=== PATIENT | male | born 1965 | race Caucasian/White ===

== ENCOUNTER 2019-01-15 20:56 | Emergency (ER) | payer BC ==
[~2019-01-15] VITALS: Ht 182.9 cm; Wt 90.8 kg
[~2019-01-15 20:56] MED LIST: MECL-111 PO
--- NOTE | 2019-01-15 21:06 | NUR ---
after triage completed, pt mentioned that he has taken a full course of bactrim without relief, when asked where he got the medications he declined to say, stating that he had his sources
[2019-01-15] MEDS ORDERED: normal saline 1000ML IV soln IV ONE (22:10)
[2019-01-15] MEDS ORDERED: methylPREDNISolone sod succ 125mg/2ml vial IV ONE (22:15)
[2019-01-15] MEDS ORDERED: ipratropium/albuterol 3ml nebule NEB ONE (22:15)
[2019-01-15 22:24] LABS: BASOPHILS % (AUTO) 0.6 % (0-1); EOSINOPHILS # (AUTO) 0.1 X10'3 (0-0.9); EOSINOPHILS % (AUTO) 1.8 % (0-6); HEMATOCRIT 42.1 % (42.0-52.0); HEMOGLOBIN 14.4 g/dl (14.0-17.9); LYMPHOCYTES # (AUTO) 0.7 X10'3 (1.1-4.8); LYMPHOCYTES % (AUTO) 12.6 % (21-51); MEAN CORPUSCULAR HEMOGLOBIN 30.2 PG (27.0-31.0); MEAN CORPUSCULAR HGB CONC 34.3 g/dL (33.0-36.5); MEAN CORPUSCULAR VOLUME 88.1 FL (78-98); MEAN PLATELET VOLUME 7.9 FL (7.4-10.4); MONOCYTES # (AUTO) 0.5 X10'3 (0-0.9); MONOCYTES % (AUTO) 8.6 % (2-12); NEUTROPHILS # (AUTO) 4.2 X10'3 (1.8-7.7); NEUTROPHILS % (AUTO) 76.4 % (42-75); PLATELET COUNT 211 X10'3 (140-440); RED BLOOD COUNT 4.77 X10'6 (4.70-6.10); RED CELL DISTRIBUTION WIDTH 12.6 % (11.5-14.5); WHITE BLOOD COUNT 5.5 X10'3 (4.5-11.0)
[2019-01-15 22:24] LABS: CLARITY,URINE CLEAR (Clear); COLOR,URINE YELLOW (Yellow); GLUCOSE, URINE NEGATIVE (Neg); KETONES,URINE NEGATIVE (Neg); LEUKOCYTE ESTERASE ,URINE NEGATIVE (Neg); NITRITES, URINE NEGATIVE (Neg); OCCULT BLOOD,URINE NEGATIVE (Neg); PROTEIN,URINE NEGATIVE (Neg); UROBILINOGEN,URINE 0.2 E.U/dL (0.2-1.0)
[2019-01-15 22:29] LABS: UA COLLECTION TYPE CLN CATCH MIDSTREAM
[2019-01-15 22:35] LABS: URINE AMPHETAMINE SCREEN NEGATIVE (Neg); URINE BARBITUATE SCREEN NEGATIVE (Neg); URINE BENZODIAZEPINES SCREEN NEGATIVE (Neg); URINE CANNABINOID SCREEN NEGATIVE (Neg); URINE COCAINE SCREEN NEGATIVE (Neg); URINE METHADONE SCREEN NEGATIVE (Neg); URINE OPIATE SCREEN NEGATIVE (Neg); URINE PHENCYCLIDINE SCREEN NEGATIVE (Neg)
[2019-01-15 22:39] LABS: ALANINE AMINOTRANSFERASE 69 U/L (12-78); ALBUMIN 3.3 G/DL (3.4-5.0); ALBUMIN/GLOBULIN RATIO 0.8 (1.1-1.5); ALKALINE PHOSPHATASE 119 IU/L (46-116); ANION GAP 7 (8-16); ASPARTATE AMINO TRANSFERASE 39 U/L (10-37); BILIRUBIN,TOTAL 0.4 MG/DL (0.1-1.0); CALCIUM 9.1 MG/DL (8.5-10.1); CHLORIDE 104 MMOL/L (99-107); CREATININE 1.05 MG/DL (0.60-1.10); ETHANOL < 0.010 GM/DL (0.0-0.010); GLUCOSE 113 MG/DL (70-104); POTASSIUM 3.7 MMOL/L (3.5-5.1); SODIUM 139 MMOL/L (135-145); TOTAL CARBON DIOXIDE 27.6 MMOL/L (24-32); TOTAL PROTEIN 7.2 G/DL (6.4-8.2); eGFR 73 ML/MIN
[2019-01-15 22:42] LABS: INR 1.1 INR; PARTIAL THROMBOPLASTIN TIME 32 SECONDS (22-32); PROTHROMBIN TIME 10.8 SECONDS (9.0-12.0)
[2019-01-15 22:48] LABS: BLOOD UREA NITROGEN 16 MG/DL (7-18); BUN/CREATININE RATIO 15.2 (5.4-32.0)
[2019-01-15] MEDS ORDERED: GUAI473S11 PO (23:14)
[2019-01-15] MEDS ORDERED: AMOX-422 PO (23:14)
[2019-01-15] MEDS ORDERED: PRED20TA PO (23:14)
[2019-01-15] MEDS ORDERED: ALBU6.7H INH (23:14)
[2019-01-15 23:45] VITALS: BP 134/73
== END 2019-01-16 00:11 | disposition home or self-care (01) ==
LOC: ER 20:57
DX: J18.9 Pneumonia, unspecified organism (principal); R06.02 Shortness of breath; I10 Essential (primary) hypertension; Z88.5 Allergy status to narcotic agent; Z79.899 Other long term (current) drug therapy
CPT/HCPCS: 36415; 71045; 80053; 80305; 80320; 81003; 83605; 84145; 85025; 85610; 85730; 87040; 94640; 94760; 96374; 99284; J2930; J7030

== ENCOUNTER 2023-03-04 05:55 | Emergency (ER) | payer BC ==
[~2023-03-04] VITALS: Ht 182.9 cm; Wt 79.5 kg
[~2023-03-04 05:55] MED LIST changes: +ALBU6.7H14 INH; -MECL-111 PO; +MECL-159 PO
[2023-03-04 06:25] LABS: BASOPHILS % (AUTO) 0.4 % (0-1); EOSINOPHILS # (AUTO) 0.2 X10'3 (0-0.9); EOSINOPHILS % (AUTO) 2.2 % (0-6); HEMATOCRIT 51.6 % (42.0-52.0); HEMOGLOBIN 17.6 g/dl (14.0-17.9); LYMPHOCYTES # (AUTO) 1.7 X10'3 (1.1-4.8); LYMPHOCYTES % (AUTO) 23.7 % (21-51); MEAN CORPUSCULAR HEMOGLOBIN 30.8 PG (27.0-31.0); MEAN CORPUSCULAR HGB CONC 34.1 g/dL (33.0-36.5); MEAN CORPUSCULAR VOLUME 90.3 FL (78-98); MEAN PLATELET VOLUME 8.8 FL (7.4-10.4); MONOCYTES # (AUTO) 0.6 X10'3 (0-0.9); MONOCYTES % (AUTO) 8.2 % (2-12); NEUTROPHILS # (AUTO) 4.6 X10'3 (1.8-7.7); NEUTROPHILS % (AUTO) 65.5 % (42-75); PLATELET COUNT 174 X10'3 (140-440); RED BLOOD COUNT 5.71 X10'6 (4.70-6.10); RED CELL DISTRIBUTION WIDTH 13.1 % (11.5-14.5)
[2023-03-04] MEDS ORDERED: diltiazem 5mg/ml 5ml inj. IV ONE (06:30)
[2023-03-04] MEDS ORDERED: normal saline 1000ml 1,000 ML IV ONE (06:30)
[2023-03-04 06:37] LABS: ALANINE AMINOTRANSFERASE 58 U/L (12-78); ALBUMIN 4.3 G/DL (3.4-5.0); ALBUMIN/GLOBULIN RATIO 1.3 (1.1-1.5); ALKALINE PHOSPHATASE 91 IU/L (46-116); ANION GAP 11 (8-16); ASPARTATE AMINO TRANSFERASE 32 U/L (10-37); BILIRUBIN,TOTAL 0.6 MG/DL (0.1-1.0); BLOOD UREA NITROGEN 17 MG/DL (7-18); BUN/CREATININE RATIO 16.8 (10.0-20.0); CALCIUM 9.1 MG/DL (8.5-10.1); CHLORIDE 104 MMOL/L (99-107); CREATININE 1.01 MG/DL (0.60-1.10); GLUCOSE 105 MG/DL (70-104); POTASSIUM 3.5 MMOL/L (3.5-5.1); SODIUM 141 MMOL/L (135-145); TOTAL CARBON DIOXIDE 26.4 MMOL/L (24-32); TOTAL PROTEIN 7.6 G/DL (6.4-8.2); eGFR 76 ML/MIN
[2023-03-04 06:43] LABS: MAGNESIUM 2.4 MG/DL (1.5-2.4)
[2023-03-04] MEDS ORDERED: metoprolol tartrate 1mg/ml inj IV ONE (07:10)
--- NOTE | 2023-03-04 07:11 | NUR ---
Pt's HR at 148 bpm (afib). BP 129/71. Dr. Toro at bedside. Per MD RN to order and administer 5 mg IV lopressor. RN ordered via [facility]OR[facility]. RN to administer. Addendum: 03/04/23 at 0820 by KRISTI Upon reassessment, HR decreased to 80 bpm, BP 116/67. Pt reports that he "feels better." Dizziness has improved.
[2023-03-04] MEDS ORDERED: magnesium 2GM in 50ml NS 50 ML IV ONE ×2 (08:30→09:30)
[2023-03-04] MEDS ORDERED: POTASSIUM BICARB 20meq eff tab 20 MEQ TABLET.EFF PO ONE (08:30)
[2023-03-04] MEDS ORDERED: METO50TA7 PO ×2 (10:51)
[2023-03-04 11:24] VITALS: BP 108/83
== END 2023-03-04 11:28 | disposition home or self-care (01) ==
LOC: ER 05:55
DX: I48.20 Chronic atrial fibrillation, unspecified (principal); I10 Essential (primary) hypertension; Z88.8 Allergy status to other drugs, medicaments and biological substances; Z79.899 Other long term (current) drug therapy
CPT/HCPCS: 36415; 71045; 80053; 83605; 83735; 83880; 84439; 84443; 84484; 85025; 87040; 93005; 96361; 96365; 96375; 99285; J3475; J3490; J7030

== ENCOUNTER 2023-03-07 22:20 | Inpatient (IN) | payer BC ==
[~2023-03-07] VITALS: Ht 182.9 cm; Wt 79.5 kg
[~2023-03-07 22:20] MED LIST changes: +METO50TA7 PO
[2023-03-07 22:51] LABS: BASOPHILS # (AUTO) 0.1 X10'3 (0-0.2); BASOPHILS % (AUTO) 0.7 % (0-1); EOSINOPHILS # (AUTO) 0.2 X10'3 (0-0.9); EOSINOPHILS % (AUTO) 2.7 % (0-6); HEMATOCRIT 48.8 % (42.0-52.0); HEMOGLOBIN 16.9 g/dl (14.0-17.9); LYMPHOCYTES # (AUTO) 2.7 X10'3 (1.1-4.8); LYMPHOCYTES % (AUTO) 34.7 % (21-51); MEAN CORPUSCULAR HEMOGLOBIN 30.9 PG (27.0-31.0); MEAN CORPUSCULAR HGB CONC 34.6 g/dL (33.0-36.5); MEAN CORPUSCULAR VOLUME 89.5 FL (78-98); MEAN PLATELET VOLUME 8.9 FL (7.4-10.4); MONOCYTES # (AUTO) 0.6 X10'3 (0-0.9); MONOCYTES % (AUTO) 7.6 % (2-12); NEUTROPHILS # (AUTO) 4.2 X10'3 (1.8-7.7); NEUTROPHILS % (AUTO) 54.3 % (42-75); PLATELET COUNT 176 X10'3 (140-440); RED BLOOD COUNT 5.45 X10'6 (4.70-6.10); WHITE BLOOD COUNT 7.8 X10'3 (4.5-11.0)
[2023-03-07] MEDS ORDERED: magnesium 2GM in 50ml NS 50 ML IV ONE (22:55)
[2023-03-07] MEDS ORDERED: normal saline 1000ml 1,000 ML IV ONE (22:55)
[2023-03-07] MEDS ORDERED: metoprolol tartrate 1mg/ml inj IV ONE (22:55)
[2023-03-07 22:57] LABS: ALANINE AMINOTRANSFERASE 74 U/L (12-78); ALBUMIN 4.2 G/DL (3.4-5.0); ALBUMIN/GLOBULIN RATIO 1.2 (1.1-1.5); ALKALINE PHOSPHATASE 84 IU/L (46-116); ANION GAP 12 (8-16); ASPARTATE AMINO TRANSFERASE 31 U/L (10-37); BILIRUBIN,TOTAL 0.4 MG/DL (0.1-1.0); BLOOD UREA NITROGEN 24 MG/DL (7-18); BUN/CREATININE RATIO 21.8 (10.0-20.0); CALCIUM 8.8 MG/DL (8.5-10.1); CHLORIDE 104 MMOL/L (99-107); POTASSIUM 3.7 MMOL/L (3.5-5.1); SODIUM 141 MMOL/L (135-145); TOTAL CARBON DIOXIDE 25.4 MMOL/L (24-32); TOTAL PROTEIN 7.7 G/DL (6.4-8.2); eGFR 69 ML/MIN
[2023-03-07 23:05] LABS: MAGNESIUM 2.2 MG/DL (1.5-2.4)
[2023-03-07 23:11] LABS: GLUCOSE 126 MG/DL (70-104)
[2023-03-08] VITALS (16 sets, daily range): BP systolic 108–167; BP diastolic 49–93
[2023-03-08] MEDS ORDERED: metoprolol tartrate 1mg/ml inj IV ONE ×2 (00:05→00:10)
[2023-03-08] MEDS ORDERED: diltiazem-D5W 125mg/125ml 125 ML IV SCH (00:10)
[2023-03-08] MEDS: diltiazem-NS 100mg/100ml 100 ML IV SCH ×2 (00:23→07:18)
[2023-03-08] MEDS ORDERED: normal saline 1000ml 1,000 ML IV SCH (01:50)
[2023-03-08] MEDS ORDERED: ondansetron/PF 4mg/2ml inj IV PRN (01:50)
[2023-03-08] MEDS ORDERED: magnesium hydroxide 30ml (MOM) UD suspension PO PRN (01:50)
[2023-03-08] MEDS ORDERED: diphenhydrAMINE 25mg capsule PO PRN (01:50)
[2023-03-08] MEDS ORDERED: ondansetron 4mg rapidly disintigrating tab PO PRN (01:50)
[2023-03-08] MEDS ORDERED: bisacodyl 10mg suppository rectal RC PRN (01:50)
[2023-03-08] MEDS ORDERED: acetaminophen 650mg rectal suppository RC PRN (01:50)
[2023-03-08] MEDS ORDERED: diphenhydrAMINE 50 mg/ml inj IV PRN (01:50)
[2023-03-08] MEDS ORDERED: mag hydrox/Alum hydrox/simeth 30ml oral suspension PO PRN (01:50)
[2023-03-08] MEDS ORDERED: acetaminophen 325mg tablet PO PRN ×2 (01:50)
[2023-03-08] MEDS ORDERED: heparin 10,000 units/1 ML INJ IV PRN (01:55)
[2023-03-08] MEDS ORDERED: heparin 25,000 UNIT/250ml bag 250 ML IV PRN (01:55)
[2023-03-08] MEDS ORDERED: heparin 10,000 units/1 ML INJ IV ONE (01:55)
[2023-03-08 02:05] LABS: APTT 29 SECONDS (22-32)
[2023-03-08 02:16] LABS: CREATINE KINASE 153 U/L (39-308); LIPASE 125 U/L (73-393)
[2023-03-08 02:17] LABS: HEMOGLOBIN A1C 5.3 % (4.5-6.2)
[2023-03-08 02:34] LABS: BASOPHILS # (AUTO) 0.1 X10'3 (0-0.2); BASOPHILS % (AUTO) 0.7 % (0-1); EOSINOPHILS # (AUTO) 0.1 X10'3 (0-0.9); EOSINOPHILS % (AUTO) 1.5 % (0-6); HEMATOCRIT 45.6 % (42.0-52.0); HEMOGLOBIN 15.9 g/dl (14.0-17.9); LYMPHOCYTES # (AUTO) 1.4 X10'3 (1.1-4.8); LYMPHOCYTES % (AUTO) 17.3 % (21-51); MEAN CORPUSCULAR HEMOGLOBIN 31.1 PG (27.0-31.0); MEAN CORPUSCULAR HGB CONC 34.8 g/dL (33.0-36.5); MEAN CORPUSCULAR VOLUME 89.3 FL (78-98); MONOCYTES # (AUTO) 0.4 X10'3 (0-0.9); MONOCYTES % (AUTO) 5.2 % (2-12); NEUTROPHILS % (AUTO) 75.3 % (42-75); PLATELET COUNT 164 X10'3 (140-440); RED BLOOD COUNT 5.11 X10'6 (4.70-6.10); RED CELL DISTRIBUTION WIDTH 12.9 % (11.5-14.5)
[2023-03-08 02:43] LABS: URINE AMPHETAMINE SCREEN NEGATIVE (Neg); URINE BARBITUATE SCREEN NEGATIVE (Neg); URINE BENZODIAZEPINES SCREEN NEGATIVE (Neg); URINE CANNABINOID SCREEN NEGATIVE (Neg); URINE COCAINE SCREEN NEGATIVE (Neg); URINE METHADONE SCREEN NEGATIVE (Neg); URINE OPIATE SCREEN NEGATIVE (Neg); URINE PHENCYCLIDINE SCREEN NEGATIVE (Neg)
[2023-03-08] MEDS ORDERED: LISI5TAB22 PO (04:24)
[2023-03-08] MEDS ORDERED: METO-384 PO (04:25)
--- NOTE | 2023-03-08 06:48 | NUR ---
Problems reprioritized. Patient report given, questions answered & plan of care reviewed with Joss LAWS.
[2023-03-08] MEDS: pantoprazole 40mg Tablet.DR PO SCH (07:27)
[2023-03-08] MEDS: docusate sod 100mg capsule PO SCH ×2 (07:28→20:12)
--- NOTE | 2023-03-08 07:30 | NUR ---
Message: Nirali [id number], Pt is in normal sinus rhythm and on Cardizem drip at 5. Did you want them swapped to PO Cardizem or remain on drip? Also did you want to advance pt's diet to HH from clear liquid? Joss [id number]
[2023-03-08] MEDS ORDERED: diltiazem 30mg tablet PO SCH (08:00)
[2023-03-08] MEDS ORDERED: metoprolol succinate 25mg (24-HOUR) SR. Tablet PO SCH (08:00)
[2023-03-08] MEDS ORDERED: magnesium 2GM in 50ml NS 50 ML IV PRN (08:25)
[2023-03-08] MEDS ORDERED: magnesium Cl slow-release 64mg tablet PO PRN (08:25)
[2023-03-08] MEDS ORDERED: magnesium 4gm in 100ml NS 100 ML IV PRN (08:25)
[2023-03-08] MEDS ORDERED: potassium Cl 40MEQ/1/2NS 520ml 520 ML IV PRN (08:25)
[2023-03-08] MEDS ORDERED: potassium Cl 20 mEq SR tablet PO PRN ×2 (08:25)
[2023-03-08] MEDS: lisinopril 5mg tablet PO SCH (09:52)
[2023-03-08] MEDS: normal saline 1000ml 1,000 ML IV SCH (11:55)
[2023-03-08] MEDS: K and/or MAG REPLACEMENT MC SCH (13:20)
--- NOTE | 2023-03-08 18:51 | NUR ---
Problems reprioritized. Patient report given, questions answered & plan of care reviewed with Sarah RN.
[2023-03-08] MEDS: apixaban 5mg tablet PO SCH (20:13)
[2023-03-08] MEDS: amiodarone 200mg tablet PO SCH (20:13)
[2023-03-08] MEDS ORDERED: temazepam 15mg capsule PO PRN (21:00)
--- NOTE | 2023-03-08 21:00 | NUR ---
Pt. is awake alert oriented in good spirits has a peripheral IV with NS infusing, uses urinal as needed urine yellow clear. Able to talk about events of the day. Discussed HR, rhythm control and new meds. HR slower on Po Cordarone 53, bp 104/49 asymptomatic. 0100 No c/o pain. Tele monitor shows NSR/SB. Plan for home tomorrow is medically cleared.
[2023-03-09 02:00] VITALS: BP 103/61
[2023-03-09 06:00] VITALS: BP 124/69
[2023-03-09 06:42] LABS: BASOPHILS % (AUTO) 0.5 % (0-1); EOSINOPHILS # (AUTO) 0.2 X10'3 (0-0.9); HEMATOCRIT 45.7 % (42.0-52.0); HEMOGLOBIN 15.7 g/dl (14.0-17.9); LYMPHOCYTES # (AUTO) 1.4 X10'3 (1.1-4.8); LYMPHOCYTES % (AUTO) 22.6 % (21-51); MEAN CORPUSCULAR HEMOGLOBIN 31.4 PG (27.0-31.0); MEAN CORPUSCULAR HGB CONC 34.3 g/dL (33.0-36.5); MEAN CORPUSCULAR VOLUME 91.3 FL (78-98); MONOCYTES # (AUTO) 0.5 X10'3 (0-0.9); MONOCYTES % (AUTO) 7.7 % (2-12); NEUTROPHILS % (AUTO) 66.2 % (42-75); PLATELET COUNT 160 X10'3 (140-440); RED CELL DISTRIBUTION WIDTH 12.9 % (11.5-14.5); WHITE BLOOD COUNT 6.1 X10'3 (4.5-11.0)
[2023-03-09 07:06] LABS: ALANINE AMINOTRANSFERASE 58 U/L (12-78); ALBUMIN 3.4 G/DL (3.4-5.0); ALBUMIN/GLOBULIN RATIO 1.2 (1.1-1.5); ALKALINE PHOSPHATASE 66 IU/L (46-116); ANION GAP 8 (8-16); ASPARTATE AMINO TRANSFERASE 27 U/L (10-37); BILIRUBIN,TOTAL 0.8 MG/DL (0.1-1.0); BLOOD UREA NITROGEN 13 MG/DL (7-18); BUN/CREATININE RATIO 14.3 (10.0-20.0); CALCIUM 8.6 MG/DL (8.5-10.1); CHLORIDE 107 MMOL/L (99-107); CHOL/HDL RATIO 2.3 (0.00-4.99); CHOLESTEROL 114 MG/DL (0-200); CREATININE 0.91 MG/DL (0.60-1.10); GLUCOSE 92 MG/DL (70-104); HDL CHOLESTEROL 50 MG/DL (35-60); LDL CHOLESTEROL 53 MG/DL (50-100); MAGNESIUM 2.3 MG/DL (1.5-2.4); PHOSPHORUS 3.3 MG/DL (2.3-4.5); POTASSIUM 4.2 MMOL/L (3.5-5.1); SODIUM 140 MMOL/L (135-145); TOTAL PROTEIN 6.2 G/DL (6.4-8.2); TRIGLYCERIDES 49 MG/DL (20-135); eGFR 85 ML/MIN
[2023-03-09 07:25] VITALS: BP 114/66
[2023-03-09] MEDS: normal saline 1000ml 1,000 ML IV SCH (07:55)
--- NOTE | 2023-03-09 07:58 | NUR ---
Message: [phone] Geovanny Campoverde: patient has metoprolol 75mg ordered and starting today a new order for 50mg. which dose would you like given? thank you! jessenia [id number] Transaction number: [id number]
[2023-03-09] MEDS ORDERED: metoprolol succinate 25mg (24-HOUR) SR. Tablet PO SCH (08:00)
[2023-03-09] MEDS: K and/or MAG REPLACEMENT MC SCH (08:00)
[2023-03-09] MEDS: apixaban 5mg tablet PO SCH (08:47)
[2023-03-09] MEDS: docusate sod 100mg capsule PO SCH (08:47)
[2023-03-09] MEDS: amiodarone 200mg tablet PO SCH (08:48)
[2023-03-09] MEDS: lisinopril 5mg tablet PO SCH (08:48)
[2023-03-09] MEDS: pantoprazole 40mg Tablet.DR PO SCH (08:49)
[2023-03-09 09:39] VITALS: BP 107/60
[2023-03-09] MEDS ORDERED: APIX5TAB3 PO (12:22)
[2023-03-09] MEDS ORDERED: PANT40TA54 PO (12:22)
[2023-03-09] MEDS ORDERED: AMIO200T67 PO (12:22)
--- NOTE | 2023-03-09 13:37 | NUR ---
Patient stable and appropriate for discharge home. IV x2 removed, security monitor removed. All belongings taken from room. New RX e-scripted to preferred pharmacy ([facility] in [place]). All discharge instructions and education given and reviewed with patient, all questions answered.
== END 2023-03-09 13:49 | disposition home or self-care (01) | DRG 309 ==
LOC: ER 22:21 → ED HOLD 03-08 01:51 → PCU 3S 03-08 05:20
PROVIDERS: ADMIT Family Medicine; ATTEND Family Medicine
DX: I48.19 Other persistent atrial fibrillation (principal); I13.0 Hypertensive heart and chronic kidney disease with heart failure and stage 1 through stage 4 chronic kidney disease, or unspecified chronic kidney disease; I50.20 Unspecified systolic (congestive) heart failure; N17.9 Acute kidney failure, unspecified; E78.5 Hyperlipidemia, unspecified; I49.3 Ventricular premature depolarization; N18.9 Chronic kidney disease, unspecified; K21.9 Gastro-esophageal reflux disease without esophagitis; Z88.8 Allergy status to other drugs, medicaments and biological substances; Z79.899 Other long term (current) drug therapy
CPT/HCPCS: 36415; 71045; 80053; 80061; 80305; 82550; 83036; 83690; 83735; 83880; 84100; 84145; 84439; 84443; 84484; 85025; 85379; 85610; 85730; 87081; 93005; 93306; 99285; G0378; J1644; J3475; J3490; J7030

== ENCOUNTER 2024-05-22 22:03 | Inpatient (IN) | payer BC ==
[~2024-05-22] VITALS: Ht 182.9 cm; Wt 81.5 kg
[~2024-05-22 22:03] MED LIST changes: -ALBU6.7H14 INH; +AMIO200T67 PO; +APIX5TAB3 PO; +COLC0.6T72 PO; +LISI5TAB22 PO; -MECL-159 PO; +METO-384 PO; -METO50TA7 PO; +PANT40TA54 PO
[2024-05-22] MEDS: ondansetron 4mg rapidly disintigrating tab PO ONE (23:03)
[2024-05-22 23:18] LABS: ALANINE AMINOTRANSFERASE 62 U/L (12-78); ALBUMIN 3.5 G/DL (3.4-5.0); ALBUMIN/GLOBULIN RATIO 1.1 (1.1-1.5); ALKALINE PHOSPHATASE 92 IU/L (46-116); ANION GAP 8 (8-16); ASPARTATE AMINO TRANSFERASE 17 U/L (10-37); BLOOD UREA NITROGEN 17 MG/DL (7-18); BUN/CREATININE RATIO 17.7 (10.0-20.0); CALCIUM 8.8 MG/DL (8.5-10.1); CHLORIDE 103 MMOL/L (99-107); CREATININE 0.96 MG/DL (0.60-1.10); GLUCOSE 154 MG/DL (70-104); LIPASE 27 U/L (16-77); POTASSIUM 3.5 MMOL/L (3.5-5.1); SODIUM 137 MMOL/L (135-145); TOTAL CARBON DIOXIDE 26.4 MMOL/L (24-32); TOTAL PROTEIN 6.7 G/DL (6.4-8.2); eCRCL 89 ML/MIN; eGFR 80 ML/MIN
[2024-05-22 23:19] LABS: BASOPHILS # (AUTO) 0.1 X10'3 (0-0.2); BASOPHILS % (AUTO) 0.8 % (0-1); EOSINOPHILS # (AUTO) 0.1 X10'3 (0-0.9); EOSINOPHILS % (AUTO) 0.7 % (0-6); HEMATOCRIT 45.7 % (42.0-52.0); HEMOGLOBIN 15.4 g/dl (14.0-17.9); LYMPHOCYTES # (AUTO) 0.8 X10'3 (1.1-4.8); LYMPHOCYTES % (AUTO) 6.1 % (21-51); MEAN CORPUSCULAR HEMOGLOBIN 30.6 PG (27.0-31.0); MEAN CORPUSCULAR HGB CONC 33.8 g/dL (33.0-36.5); MEAN CORPUSCULAR VOLUME 90.6 FL (78-98); MEAN PLATELET VOLUME 8.7 FL (7.4-10.4); MONOCYTES # (AUTO) 0.8 X10'3 (0-0.9); NEUTROPHILS # (AUTO) 11.7 X10'3 (1.8-7.7); NEUTROPHILS % (AUTO) 86.4 % (42-75); PLATELET COUNT 175 X10'3 (140-440); RED BLOOD COUNT 5.04 X10'6 (4.70-6.10); WHITE BLOOD COUNT 13.6 X10'3 (4.5-11.0)
[2024-05-22 23:36] LABS: BILIRUBIN,URINE NEGATIVE (Neg); CLARITY,URINE CLEAR (Clear); COLOR,URINE YELLOW (Yellow); GLUCOSE, URINE NEGATIVE (Neg); KETONES,URINE NEGATIVE (Neg); LEUKOCYTE ESTERASE ,URINE NEGATIVE (Neg); NITRITES, URINE NEGATIVE (Neg); OCCULT BLOOD,URINE NEGATIVE (Neg); PROTEIN,URINE NEGATIVE (Neg); UROBILINOGEN,URINE 0.2 E.U/dL (0.2-1.0)
[2024-05-22 23:39] LABS: UA COLLECTION TYPE CLN CATCH MIDSTREAM
[2024-05-23] VITALS (24 sets, daily range): BP systolic 91–142; BP diastolic 55–87; PULSE 78–95; RESP 11–17; TEMP 97–98.2; O2SAT 92–100
[2024-05-23] MEDS ORDERED: magnesium sulf-water 2g/50mL 50 ML IV PRN (00:25)
[2024-05-23] MEDS ORDERED: magnesium Cl slow-release 64mg tablet PO PRN (00:25)
[2024-05-23] MEDS ORDERED: ondansetron/PF 4mg/2ml inj IV PRN (00:25)
[2024-05-23] MEDS ORDERED: potassium Cl 20 mEq SR tablet PO PRN ×2 (00:25)
[2024-05-23] MEDS ORDERED: metoclopramide 5 mg/ml inj IV PRN (00:25)
[2024-05-23] MEDS ORDERED: morphine 2 MG/ML inj. syringe IV PRN (00:25)
[2024-05-23] MEDS ORDERED: acetaminophen 325mg tablet PO PRN (00:25)
[2024-05-23] MEDS ORDERED: potassium Cl 40MEQ/1/2NS 520ml 520 ML IV PRN (00:25)
[2024-05-23] MEDS ORDERED: magnesium sulf-water 4G/100mL 100 ML IV PRN (00:25)
[2024-05-23] MEDS ORDERED: mag hydrox/Alum hydrox/simeth 30ml oral suspension PO PRN (00:25)
[2024-05-23] MEDS ORDERED: magnesium hydroxide 30ml (MOM) UD suspension PO PRN (00:25)
[2024-05-23] MEDS: normal saline 1000ML IV soln IVB ONE (00:38)
[2024-05-23] MEDS: piperacillin/tazo 3.375gm/50ml 50 ML IV ONE (00:39)
[2024-05-23] MEDS: morphine 2 MG/ML inj. syringe IV PRN (01:01)
[2024-05-23 01:23] LABS: INR 1.1 INR; PROTHROMBIN TIME 11.6 SECONDS (9.0-12.0)
[2024-05-23] MEDS: normal saline 1000ml 1,000 ML IV SCH (01:46)
[2024-05-23] MEDS ORDERED: LOSA100T58 PO (02:08)
[2024-05-23 06:50] LABS: MAGNESIUM 2.3 MG/DL (1.5-2.4); POTASSIUM 4.3 MMOL/L (3.5-5.1)
[2024-05-23] MEDS: BUPIVAcaine 2.5mg/ml inj 50ml vial (contains preservative) ONE (06:51)
[2024-05-23 06:55] LABS: APTT 28 SECONDS (22-32)
[2024-05-23 07:14] LABS: HEMOGLOBIN A1C 5.3 % (4.5-6.2)
[2024-05-23] MEDS: docusate sod 100mg capsule PO SCH (07:59)
[2024-05-23] MEDS: piperacillin/tazo 3.375gm/50ml 50 ML IV SCH (07:59)
[2024-05-23] MEDS: K and/or MAG REPLACEMENT MC SCH (08:00)
[2024-05-23] MEDS: enoxaparin 40mg/0.4ml syringe SUBCUT SCH (08:00)
[2024-05-23] MEDS: BUPIVAcaine/PF 2.5mg/ml (0.25%) 10ml vial ONE (11:46)
[2024-05-23] MEDS ORDERED: sevoflurane 250ml liquid IH ONE (12:45)
[2024-05-23] MEDS ORDERED: dexamethasone sod phosphate 4mg/ml inj. ONE (13:00)
[2024-05-23] MEDS ORDERED: propofol inj 20 ML IV ONE (13:00)
[2024-05-23] MEDS ORDERED: LIDOcaine 2% (20mg/ml) 5ml vial ONE (13:00)
[2024-05-23] MEDS ORDERED: ondansetron/PF 4mg/2ml inj ONE (13:00)
[2024-05-23] MEDS ORDERED: rocuronium 10mg/ml inj IV ONE (13:01)
[2024-05-23] MEDS ORDERED: fentaNYL/PF 50MCG/1 ML 2ML syringe ONE (13:23)
[2024-05-23] MEDS ORDERED: sugammadex 200mg/2ml injection IV ONE (13:32)
[2024-05-23] MEDS: BUPIVAcaine 2.5mg/ml inj 50ml vial (contains preservative) SQ ONE (13:44)
[2024-05-23] MEDS ORDERED: meperidine/PF 25mg/ml syringe IV PRN (14:05)
[2024-05-23] MEDS: ringers solution, lacted 1,000 ML IV SCH (14:05)
[2024-05-23] MEDS ORDERED: fentaNYL/PF 50MCG/1 ML 2ML syringe IV PRN (14:05)
[2024-05-23] MEDS: HYDROmorphone/PF 0.2 MG/ML SYRINGE IV PRN (14:21)
[2024-05-23] MEDS: acetaminophen 1,000mg/100ml IV 100 ML IV ONE (14:35)
[2024-05-23] MEDS: ondansetron/PF 4mg/2ml inj IV PRN (15:24)
[2024-05-23] MEDS: proCHLORperazine 10 MG/2 ml inj IV PRN (15:37)
[2024-05-24 02:00] VITALS: BP 103/54; PULSE 88; RESP 15; TEMP 97.7; O2SAT 94
[2024-05-24 06:00] VITALS: BP 106/60; PULSE 91; RESP 15; TEMP 98.1; O2SAT 95
[2024-05-24 07:24] LABS: BASOPHILS % (AUTO) 0.1 % (0-1); EOSINOPHILS % (AUTO) 0 % (0-6); HEMATOCRIT 40.7 % (42.0-52.0); HEMOGLOBIN 13.8 g/dl (14.0-17.9); LYMPHOCYTES # (AUTO) 0.8 X10'3 (1.1-4.8); LYMPHOCYTES % (AUTO) 6.4 % (21-51); MEAN CORPUSCULAR HEMOGLOBIN 31.3 PG (27.0-31.0); MEAN CORPUSCULAR HGB CONC 33.9 g/dL (33.0-36.5); MEAN CORPUSCULAR VOLUME 92.3 FL (78-98); MEAN PLATELET VOLUME 9.1 FL (7.4-10.4); MONOCYTES # (AUTO) 0.8 X10'3 (0-0.9); MONOCYTES % (AUTO) 6.3 % (2-12); NEUTROPHILS # (AUTO) 10.7 X10'3 (1.8-7.7); NEUTROPHILS % (AUTO) 87.2 % (42-75); PLATELET COUNT 161 X10'3 (140-440); RED BLOOD COUNT 4.41 X10'6 (4.70-6.10); RED CELL DISTRIBUTION WIDTH 12.9 % (11.5-14.5); WHITE BLOOD COUNT 12.3 X10'3 (4.5-11.0)
[2024-05-24 07:44] LABS: ALANINE AMINOTRANSFERASE 42 U/L (12-78); ALBUMIN 2.8 G/DL (3.4-5.0); ALBUMIN/GLOBULIN RATIO 0.9 (1.1-1.5); ALKALINE PHOSPHATASE 76 IU/L (46-116); ANION GAP 7 (8-16); ASPARTATE AMINO TRANSFERASE 15 U/L (10-37); BILIRUBIN,TOTAL 0.9 MG/DL (0.1-1.0); BLOOD UREA NITROGEN 16 MG/DL (7-18); BUN/CREATININE RATIO 16.7 (10.0-20.0); CHLORIDE 106 MMOL/L (99-107); CREATININE 0.96 MG/DL (0.60-1.10); GLUCOSE 116 MG/DL (70-104); MAGNESIUM 2.3 MG/DL (1.5-2.4); POTASSIUM 4.3 MMOL/L (3.5-5.1); SODIUM 138 MMOL/L (135-145); TOTAL CARBON DIOXIDE 24.9 MMOL/L (24-32); TOTAL PROTEIN 5.8 G/DL (6.4-8.2); eCRCL 89 ML/MIN; eGFR 80 ML/MIN
[2024-05-24 08:00] VITALS: RESP 18; O2SAT 96
[2024-05-24 11:00] VITALS: BP 105/58; PULSE 92; RESP 14; TEMP 98.2; O2SAT 98
[2024-05-24 11:40] VITALS: RESP 18
[2024-05-24] MEDS: traMADol 50MG tablet PO ONE (11:40)
[2024-05-24] MEDS ORDERED: TRAM50TA2 PO (13:08)
== END 2024-05-24 15:06 | disposition home or self-care (01) | DRG 399 ==
LOC: ER 22:04 → ED HOLD 05-23 00:30 → PCU 3S 05-23 02:30
PROVIDERS: ADMIT Surgery Surgical Critical Care; ATTEND Family Medicine
PROC: 0DTJ4ZZ Resection of Appendix, Percutaneous Endoscopic Approach (ICD-10-PCS; principal; 2024-05-24)
DX: K35.80 Unspecified acute appendicitis (principal); R73.9 Hyperglycemia, unspecified; I10 Essential (primary) hypertension; D72.829 Elevated white blood cell count, unspecified; K59.09 Other constipation; I48.91 Unspecified atrial fibrillation; Z88.8 Allergy status to other drugs, medicaments and biological substances; Z79.01 Long term (current) use of anticoagulants
CPT/HCPCS: 99285; Z7506; Z7508; 36415; 74176; 80053; 81003; 82948; 83036; 83690; 83735; 84132; 84145; 85025; 85610; 85730; 87081; A4215; A4618; A7000; G0378; J0131; J0780; J1100; J1170; J1650; J2270; J2405; J2543; J2704; J3010; J3490; J7030; J7120